=== PATIENT | male | born 1950 | race Caucasian/White ===

== ENCOUNTER → 2021-09-12 16:10 | Outpatient (CLI) | payer MEDICARE, OTHER, SELFPAY ==
--- NOTE | ~2021-09-12 | MR_ITS ---
EXAMINATION: MR ankle RT wo con DATE: 09/12/2021 17:02 INDICATION: Posterior tendon rupture of right ankle. TECHNIQUE: Magnetic resonance imaging (MRI) of the right ankle was performed without intravenous cont rast. Sequences included sagittal PD-weighted FS FSE, sagittal PD-weighted FSE, coronal PD-weighted F S FSE, coronal PD-weighted FSE, axial PD-weighted FS FSE, and axial PD-weighted FSE. COMPARISON: None. FINDINGS: Medial ankle ligaments: The superficial and deep components of the deltoid ligament are intact. Lateral ankle ligaments: Anterior and posterior talofibular ligaments, calcaneofibular ligament, and posterior tibiofibular li gaments are intact. There are changes of prior sprain of anterior tibiofibular ligament characterized by increased signal intensity. Tendons: There is a longitudinal split tear of peroneus brevis tendon. Peroneus longus tendon is normal. The a nterior ankle tendons are normal. There is a complete tear of posterior tibial tendon posterior to th e medial malleolus with tendon gap measuring 3.0 cm. Achilles tendon is normal. Plantar fascia: Normal. Bones/other: Bone alignment is normal. No fracture. 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 Fluid: There is no joint effusion. IMPRESSION: 1. Complete tear of posterior tibial tendon near medial malleolus. 2. Longitudinal split tear of peroneus brevis tendon. Reviewed, dictated and finalized at location A.
== END ==
PROVIDERS: PCP Physician Assistant; Visit Provider Podiatrist Foot & Ankle Surgery
DX: M76.829 Posterior tibial tendinitis, unspecified leg (principal); S96.811A Strain of other specified muscles and tendons at ankle and foot level, right foot, initial encounter
CPT/HCPCS: 73721

== ENCOUNTER 2022-04-24 12:50 | Outpatient (CLI) | payer MEDICARE, OTHER, SELFPAY ==
--- NOTE | 2022-04-24 13:08 | ECG_ITS ---
Measurements Intervals [place] Rate: 63 P: 14 NJ: 230 QRS: 78 QRSD: 113 T: 47 QT: 394 QTc: 405 Interpretive Statements SINUS RHYTHM WITH FIRST DEGREE AV BLOCK INTRAVENTRICULAR CONDUCTION DELAY BASELINE ARTIFACT- V4-V6 BORDERLINE ECG NO PREVIOUS ECG AVAILABLE FOR COMPARISON Electronically Signed On 04-24-2022 13:24:40 [employer]PA[employer] by Patrice Nettles D.O.
[2022-04-24 13:42] LABS: Anion Gap 10 mmol/L (8-16); Blood Urea Nitrogen 18 mg/dL (9-20); Calcium 9.1 mg/dL (8.4-10.2); Carbon Dioxide 26 mmol/L (22-30); Chloride 103 mmol/L (98-107); Estimated Glomerular Filt Rate > 60; Glucose 105 mg/dL (65-110); Potassium 4.5 mmol/L (3.4-5.0); Sodium 139 mmol/L (137-145)
== END 2022-04-24 12:51 | disposition home or self-care (01) ==
LOC: ANHSURGERY 12:57
PROVIDERS: Anesthesiology; Visit Provider Otolaryngology
DX: Z01.810 Encounter for preprocedural cardiovascular examination (principal); Z01.812 Encounter for preprocedural laboratory examination; E11.9 Type 2 diabetes mellitus without complications; I44.0 Atrioventricular block, first degree
CPT/HCPCS: 36415; 80048; 93005

== ENCOUNTER 2022-05-02 01:06 | Day surgery (SDC) | payer MEDICARE, OTHER, SELFPAY ==
[2022-03-21 10:20] VITALS: BMI 32.3
--- NOTE | 2022-03-21 10:36 | PC.NURSE ---
PRE-OP INSTRUCTIONS, PLEASE READ CAREFULLY Report to the Outpatient Waiting Room, entrance under the green pavilion located off [facility], at time _1045_ on date _03/28/22_. OR Time: _1245_. Time changes happen often and if your time is changed the preop area will call you the afternoon before. - You and your visitor will be asked to self-screen and do not enter if you have any COVID symptoms. - We encourage only one visitor and NO visitors under age 16 are allowed at this time. Your visitor will receive communication by the phone number that is given day of service. - The patient visitor is requested to social distance or may leave the building when not with patient due to restrictions. - A mask is required within the hospital. Patients may have clear liquids (water, carbonated beverages, clear teas, apple juice) until 3 hours prior to surgery (0945 AM) with a maximum of 20 ounces. - No food from midnight until time of surgery Take the following medications with a SIP of water the morning of surgery: _NONE_ Medications to discontinue __ALEVE PER DR. BROOKS'S INSTRUCTIONS, Date to take last dose____ Please no make-up, nail macedonian, hairspray, perfume, deodorant, or body powder the day of surgery. No jewelry (including any body piercings) or valuables the day of surgery, leave them at home. Please take a shower or bath the night before, or the morning of, surgery with an antibacterial soap. Wear comfortable, loose fitting clothing. Children are encouraged to wear pajamas. - Jewelry must be removed prior to entering the operating room. Rings and piercings that are not removed may be cut off. - The hospital will not accept responsibility for valuables. - Please leave all valuables, including medications, at home the day of surgery. If you are going home after surgery, a licensed flatbed truck driver must drive you home. - NO public transportation without another adult. - We recommend that an adult stay with you for 24 hours following discharge. - We also recommend that you do not drive, make important decision, drink alcoholic beverages, or take any drugs that were not prescribed by your health care provider for at least 24 hours after your discharge time. Follow any additional instructions given to you from your surgeon. If you or anyone in your household have experienced Covid symptoms in the past week, please notify your surgeon or the nurse liaison at the phone number below for possible testing. Telephone instructions given to ____PT and asked if any additional questions and then verbalized understanding. Patient advised to call surgeon office or pre surgery nurse liaison [phone] if any additional questions.
[2022-04-18 11:05] VITALS: BMI 32.3
--- NOTE | 2022-04-18 11:08 | PC.NURSE ---
PRE-OP INSTRUCTIONS, PLEASE READ CAREFULLY Report to the Outpatient Waiting Room, entrance under the green pavilion located off [facility], at time _1000_ on date _05/02/22_. Planned Procedure Time: _1200_. Time changes happen often and if your time is changed the preop area will call you the afternoon before. - You and your visitor will be asked to self-screen and do not enter if you have any COVID symptoms. - We encourage only one visitor and NO visitors under age 16 are allowed at this time. Your visitor will receive communication by the phone number that is given day of service. - The patient visitor is requested to social distance or may leave the building when not with patient due to restrictions. - A mask is required within the hospital. Patients may have clear liquids (water, carbonated beverages, clear teas, apple juice) until 3 hours prior to surgery (0900 AM) with a maximum of 20 ounces. - No food from midnight until time of surgery Take the following medications with a SIP of water the morning of surgery: _FLEXERIL, NITROGLYCERIN IF NEEDED_ Medications to discontinue per physician _ALEVE PER DR. BROOKS'S INSTRUCTIONS_ Date to take last dose Please no make-up, nail serbian, hairspray, perfume, deodorant, or body powder the day of surgery. No jewelry (including any body piercings) or valuables the day of surgery, leave them at home. Please take a shower or bath the night before, or the morning of, surgery with an antibacterial soap. Wear comfortable, loose fitting clothing. Children are encouraged to wear pajamas. - Jewelry must be removed prior to entering the operating room. Rings and piercings that are not removed may be cut off. - The hospital will not accept responsibility for valuables. - Please leave all valuables, including medications, at home the day of surgery. If you are going home after surgery, a licensed grain combine driver must drive you home. - NO public transportation without another adult. - We recommend that an adult stay with you for 24 hours following discharge. - We also recommend that you do not drive, make important decision, drink alcoholic beverages, or take any drugs that were not prescribed by your health care provider for at least 24 hours after your discharge time. For Pediatric surgeries, we recommend two adults accompany the child home. Follow any additional instructions given to you from your surgeon. If you or anyone in your household have experienced Covid symptoms in the past week, please notify your surgeon or the nurse liaison at the phone number below for possible testing. Telephone instructions given to ___PT and asked if any additional questions and then verbalized understanding. Patient advised to call surgeon office or pre surgery nurse liaison [phone] if any additional questions.
--- NOTE | 2022-05-01 07:57 | PM.IMHP ---
H&P: HPI History of Present Illness Date/Time: 05/01/22 07:57 Chief Complaint: nasal obstruction nasal congestion turbinate hypertrophy Narrative: planned surgical procedure Review of Systems Review of Systems: All systems reviewed & are unremarkable except as noted in HPI and below [facility] Past Medical History Medical History (Updated 03/12/22 @ 12:41 by Skyler Colin MD) Aortic root dilatation Coronary artery disease Daytime somnolence Diabetes 03/2016 Environmental allergies Hypogonadism in male Peripheral polyneuropathy Rheumatoid arthritis Rheumatoid factor positive Type 2 diabetes mellitus without complication, without long-term current use of insulin Vitamin B12 deficiency Surgical History Surgical History History of cancer surgery -2010 History of cardiac catheterization 11/2015 History of rhinoplasty Hx of sinus surgery [place] teeth extracted Social History Social History Smoking status: Never smoker Second hand tobacco smoke exposure: No Additional smoking assessment comments: parents and others smoked cigarettes around pt as a child Alcohol intake: never Substance use: never Substance use type: does not use Gender identity (if verbalized by the patient): Male Spiritual care concerns: No Meds Home Medications and Allergies Home Medications Medication Instructions Recorded Confirmed Type cholecalciferol (vitamin D3) 50 50 mcg PO WEEKLY 08/23/19 04/18/22 History mcg (2,000 unit) capsule cyclobenzaprine 5 mg tablet 5 mg PO TID PRN Muscle Pain 08/23/19 04/18/22 History nitroglycerin 0.4 mg sublingual 0.4 mg sublingual Q5M PRN chest 08/23/19 04/18/22 History tablet pain finasteride 5 mg tablet 5 mg PO DAILY 03/12/22 04/18/22 History rosuvastatin 10 mg tablet 10 mg PO DAILY 03/12/22 04/18/22 History tamsulosin 0.4 mg capsule 0.4 mg PO DAILY 03/12/22 04/18/22 History trazodone 50 mg tablet 25 mg PO QHS PRN Insomnia 03/12/22 04/18/22 History metformin 500 mg tablet 500 mg PO BID 03/21/22 04/18/22 History naproxen 220 mg-diphenhydramine 25 1 tablet PO HS 03/21/22 04/18/22 History mg tablet (Aleve PM) omeprazole 20 mg capsule,delayed 20 mg DAILY 04/18/22 04/18/22 History release Allergies Allergy/AdvReac Type Severity Reaction Status Date / Time No Known Allergies Allergy Verified 03/21/22 10:13 Exam Narrative: turbinate hypertrophy Assessment and Plan Assessment and plan (1) Nasal valve collapse: Code(s): J34.89 - Other specified disorders of nose and nasal sinuses Status: Acute Assessment and Plan: plan operating room for turbinate reduction with outfracture risks discussed including failure to resolve symptoms need for more aggressive surgery need for referral to [facility] for valve work.? Patient voiced understanding and agree also discussed were CSF leak brain blindness change in vision. (2) Nasal septal deviation: Code(s): J34.2 - Deviated nasal septum Status: Acute (3) Hypertrophy of both inferior nasal turbinates: Code(s): J34.3 - Hypertrophy of nasal turbinates Status: Acute (4) Nasal congestion: Code(s): R09.81 - Nasal congestion Status: Acute (5) Nasal obstruction: Code(s): J34.89 - Other specified disorders of nose and nasal sinuses Status: Acute
[2022-05-02] VITALS (8 sets, daily range): BP systolic 101–123; BP diastolic 57–73; PULSE 57–75; RESP 11–16; TEMP 36.1–36.4; O2SAT 95–99
--- NOTE | 2022-05-02 07:16 | WPDHPUPDATE1 ---
History and Physical Update Update Date/Time: 05/02/22 07:16 History and Physical has been reviewed, including an updated exam of the patient. There are NO changes in the patient's condition. Risks, benefits, and alternatives have been discussed and questions answered. Patient agrees to proceed with procedure.
--- NOTE | 2022-05-02 08:18 | WPDANESEPPF ---
Anes - Initial Pre Proc Eval Procedure: Operation Date: 05/02/22 10:00 Proposed Procedures p Bilateral Inferior Turbinectomy with Outfracture - Skyler Colin MD Date/Time: 05/02/22 08:18 Surgeon: Skyler Colin MD Pre Op Diagnosis: turbinate hypertrophy Patient Data Age: 71 Gender: M Height: 1.78 m Weight: 102.27 kg Allergies Allergy/AdvReac Type Severity Reaction Status Date / Time No Known Allergies Allergy Verified 05/02/22 09:01 Home Medications Medication Instructions Recorded Confirmed Type cholecalciferol (vitamin D3) 50 50 mcg PO WEEKLY 08/23/19 04/18/22 History mcg (2,000 unit) capsule cyclobenzaprine 5 mg tablet 5 mg PO TID PRN Muscle Pain 08/23/19 04/18/22 History nitroglycerin 0.4 mg sublingual 0.4 mg sublingual Q5M PRN chest 08/23/19 04/18/22 History tablet pain finasteride 5 mg tablet 5 mg PO DAILY 03/12/22 04/18/22 History rosuvastatin 10 mg tablet 10 mg PO DAILY 03/12/22 04/18/22 History tamsulosin 0.4 mg capsule 0.4 mg PO DAILY 03/12/22 04/18/22 History trazodone 50 mg tablet 25 mg PO QHS PRN Insomnia 03/12/22 04/18/22 History metformin 500 mg tablet 500 mg PO BID 03/21/22 04/18/22 History naproxen 220 mg-diphenhydramine 25 1 tablet PO HS 03/21/22 04/18/22 History mg tablet (Aleve PM) omeprazole 20 mg capsule,delayed 20 mg DAILY 04/18/22 04/18/22 History release doxycycline hyclate 100 mg capsule 100 mg PO DAILY #7 caps 05/02/22 Rx oxycodone 5 mg tablet 5 mg PO Q12H PRN pain #10 tabs 05/02/22 Rx Patient hx anesthesia problems: none Family hx anesthesia problems: none Results Review: All pre-operative results and documents have been reviewed as part of the pre-operative evaluation. [facility] Past Medical History Medical History (Updated 05/02/22 @ 10:31 by Skyler Colin MD) Aortic root dilatation Coronary artery disease Daytime somnolence Diabetes 03/2016 Environmental allergies Hypogonadism in male Peripheral polyneuropathy Rheumatoid arthritis Rheumatoid factor positive Type 2 diabetes mellitus without complication, without long-term current use of insulin Vitamin B12 deficiency Surgical History Surgical History History of cancer surgery moh nose -2010 History of cardiac catheterization 11/2015 History of rhinoplasty Hx of sinus surgery [place] teeth extracted Social History Social History Smoking status: Never smoker Second hand tobacco smoke exposure: No Additional smoking assessment comments: parents and others smoked cigarettes around pt as a child Alcohol intake: never Substance use: never Substance use type: does not use Gender identity (if verbalized by the patient): Male Spiritual care concerns: No Anes - Eval Final PreProcedure Day of Procedure 05/02/22 08:18 Patient weight: obese Heart: regular rate and rhythm Lungs: clear to auscultation Airway: Mallampati scale class II Neurological: alert and oriented Last oral intake: >/= 8 hours ASA classification: III Emergent: no Anesthetic plan: proceed Anesthesia type and monitoring: general ETT and standard monitoring Results Review: All pre-operative results and documents have been reviewed as part of the pre-operative evaluation. Informed Consent: The patient's anesthetic plan and its attendant risks and benefits were discussed with the patient/family/POA. Questions were solicited and answers provided to the satisfaction of the patient/family/POA.
[2022-05-02 08:49] LABS: Glucose Point of Care 116 mg/dl (65-105)
[2022-05-02] MEDS: LACTATED RINGERS 1,000 ML 30 ML IV CONT (09:01)
[2022-05-02] MEDS: ACETAMINOPHEN 500 MG TABLET 1000 MG PO (09:01)
[2022-05-02] MEDS: ceFAZolin 2 GM/D5W 50 ML 2 GM/50 ML BAG IVPB (09:31)
[2022-05-02] MEDS: OXYMETAZOLINE HCL 0.05% NAS 15 ML BTL (*BKC) 1 SPRAY NASAL (09:42)
[2022-05-02 10:32] LABS: Glucose Point of Care 148 mg/dl (65-105)
--- NOTE | 2022-05-02 10:34 | P.OP_ITS ---
Procedure Note - Detailed Date of Procedure 05/02/22 Pre-op Diagnosis turbinate hypertrophy, nasal obstruction, nasal congestion Post-op Diagnosis Same Procedure Performed inferior turbinate submucosal reduction with outfracture Surgeon Skyler Colin MD Anesthesia General Indications see above Findings severely hypertrophied turbinates well reduced Description of Procedure patient identified consent verified. Patient brought operating. Time-out performed. General anesthesia induced endotracheal tube secured taped left lower lip. Patient prepped draped position Afrin-soaked pledgets placed. Second time-out performed. Afrin-soaked pledgets removed 0 degree endoscope utilized turbinate hypertrophy noted described above. They were injected with 1.5 cc of 2% lidocaine 1 100,000 parts epinephrine each. 2 mm turbinate blade utilized to debride them in the submucosal plane. The severely prominent mulberry tips were then cauterized with Bovie suction electrocautery at a setting of 10. They were then outfractured with a Bonneville elevator. Good reduction and outfracture overall. Afrin-soaked pledgets were then placed for 5 minutes for hemostasis and removed prior to extubation. I performed all d ictated portions of the procedure. Blood loss about 15 cc. No complications. Patient taken to PACU. Estimated Blood Loss 15 Drains No Packing No Pathology None sent Complications No immediate complications Condition Stable Disposition PACU
== END 2022-05-02 11:56 | disposition home or self-care (01) ==
PROVIDERS: Visit Provider Otolaryngology
PROC: (CPT 30140; principal; 2022-05-02 10:00)
DX: J34.3 Hypertrophy of nasal turbinates (principal); J34.89 Other specified disorders of nose and nasal sinuses; R09.81 Nasal congestion; I25.10 Atherosclerotic heart disease of native coronary artery without angina pectoris; E11.42 Type 2 diabetes mellitus with diabetic polyneuropathy; M06.9 Rheumatoid arthritis, unspecified; E53.8 Deficiency of other specified B group vitamins; Z79.84 Long term (current) use of oral hypoglycemic drugs; E66.9 Obesity, unspecified; Z68.31 Body mass index [BMI] 31.0-31.9, adult
CPT/HCPCS: 30140; 82948; A9270; J0330; J0690; J1100; J1170; J2405; J2704; J3010; J7120

== ENCOUNTER → 2022-07-17 15:02 | Outpatient (CLI) | payer MEDICARE, OTHER, SELFPAY ==
--- NOTE | ~2022-07-17 | MR_ITS ---
MRI of the right ankle Clinical history: Posterior tibial tendinitis Technique: Coronal proton-density and proton-density fat-sat images, axial proton-density and proton- density fat-sat images, and sagittal proton-density and proton-density fat-sat images were acquired. COMPARISON: 09/12/2021 Findings: Syndesmotic ligaments are intact. Anterior and posterior talofibular ligaments, and calcane ofibular ligament are intact. Deltoid ligament is intact. Complete tear of the tibialis posterior tendon is again present at the level of medial malleolus. Fle xor digitorum longus and flexor hallucis longus tendons are intact. Probable longitudinal split tear of the peroneus brevis tendon is unchanged. Peroneus longus tendon is intact. Achilles tendon intact. Anterior extensor tendons are intact. There is increased cystic change in the mid calcaneal body as compared to prior exam. Remaining bone marrow signals are unremarkable. Joint spaces are preserved. No joint effusion. Plantar fascia is intact. There is mild edematous signal in the sinus Tarsi. Plantar musculature appe ars unremarkable. Impression: Complete rupture of the tibialis posterior tendon at the level of the medial malleolus, similar to pr ior exam. Mild edematous signal in the sinus Tarsi. Correlate for sinus Tarsi syndrome. Probable longitudinal split tear of the peroneus brevis tendon, unchanged. Increased cystic change in the mid calcaneal body, of doubtful clinical significance. Reviewed, dictated and finalized at [facility]. 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 Mild edematous signal in the sinus Tarsi. Correlate for sinus Tarsi syndrome. Probable longitudinal split tear of the peroneus brevis tendon, unchanged. Increased cystic change in the mid calcaneal body, of doubtful clinical signifi cance.
== END ==
PROVIDERS: PCP Nurse Practitioner Family; Visit Provider Podiatrist Foot & Ankle Surgery
DX: M76.821 Posterior tibial tendinitis, right leg (principal); M66.861 Spontaneous rupture of other tendons, right lower leg; R60.9 Edema, unspecified
CPT/HCPCS: 73721